=== PATIENT | female | born 1955 | race Caucasian/White ===

== ENCOUNTER 2022-05-28 16:54 | Emergency (ER) | payer MEDICARE, OTHER, SELFPAY ==
[2022-05-28] VITALS (9 sets, daily range): BP systolic 112–135; BP diastolic 71–80; PULSE 49–73; RESP 13–36; O2SAT 94–100
--- NOTE | ~2022-05-28 | CT_ITS ---
EXAMINATION: CTA chest PE protocol DATE: 05/28/2022 22:43 INDICATION: PE TECHNIQUE: Computed tomography angiography (CTA) of the chest was performed with 100 mL Omnipaque-350 intravenous contrast timed to evaluate the pulmonary arteries. Coronal maximum intensity projection 3D-reconstructions were created by the technologist. The dose-length product (DLP) was 239.05 mGy-cm. Automated exposure control and iterative reconstruction technique were employed. COMPARISON: X-ray chest, same date. FINDINGS: Lung parenchyma and airways: Scattered dependent groundglass opacities. Pleura: Unremarkable. Thoracic inlet, axillae and chest wall: Bilateral breast augmentation. Thoracic aorta: Mild arch ectasia. Mediastinum: Dilated central pulmonary arteries as can be seen with pulmonary arterial hypertension. Heart and pericardium: Cardiomegaly. Coronary artery calcifications: Mild. Upper abdomen: Ill-defined 4.4 cm hypodensity in the central liver, with the suggestion of very early peripheral nodular enhancement. Simple left lobe cyst. Bones: No acute osseous finding. Pulmonary arteries: Study quality: Adequate. No pulmonary emboli detected. IMPRESSION: No CT evidence of acute pulmonary embolus. Mild scattered pulmonary groundglass opacities may represe nt atelectasis or mild edema. Indeterminate 4.4 cm liver mass, possibly representing a hemangioma, re commend nonemergent, outpatient CT or MR of the liver for further characterization. Reviewed, dictated and finalized at location K. IMPRESSION: No CT evidence of acute pulmonary embolus. Mild scattered pulmonary groundglass opacities may represent atelectasis or mild edema. Indeterminate 4.4 cm liver mass, possibly representing a hemangioma, recommend nonemergent, outpatient CT or MR of the liver for further characterization.
--- NOTE | ~2022-05-28 | XR_ITS ---
EXAMINATION: XR chest 2V Exam Date/Time: 05/28/2022 17:15 CDT HISTORY: DIZZINESS, RT SIDE CHEST PAIN X 1DAY Comparison: None available. RESULT: Lines, tubes, and devices: Surgical clips over the GE junction. Lungs and pleura: Clear. Cardiomediastinal silhouette: Unremarkable. Other: No acute osseous or upper abdominal finding. IMPRESSION: No acute cardiopulmonary process. Reviewed, dictated and finalized at location K.
--- NOTE | 2022-05-28 17:01 | ECG_ITS ---
Measurements Intervals Parker Rate: 50 P: 48 NM: 192 QRS: 13 QRSD: 73 T: 29 QT: 414 QTc: 381 Interpretive Statements SINUS BRADYCARDIA EARLY PRECORDIAL R/S TRANSITION LOW QRS VOLTAGE IN PRECORDIAL LEADS BASELINE ARTIFACT- I, AVR, AVL BORDERLINE ECG NO PREVIOUS ECG AVAILABLE FOR COMPARISON Electronically Signed On 05-28-2022 21:32:29 CDT by Fabio Erazo D.O.
[2022-05-28 17:26] LABS: Basophils Percent Auto 0.6 % (0.2-1.2); Eosinophils Absolute Auto 0.2 K/mm3 (0-0.3); Eosinophils Percent Auto 2.3 % (0-4.4); Hematocrit 38.7 % (37.0-47.0); Hemoglobin 12.6 g/dL (12.0-15.0); Immature Granulocyte Absolute 0.01 K/mm3 (0.00-0.031); Immature Granulocyte Percent A 0.2 % (0-0.5); Lymphocytes Absolute Auto 1.85 K/mm3 (0.9-3.2); Lymphocytes Percent Auto 28.2 % (18.3-44.2); Mean Corpuscular HGB Conc 32.6 g/dl (32-36); Mean Corpuscular Hemoglobin 31.5 pg (26-34); Mean Corpuscular Volume 96.8 fl (80-100); Mean Platelet Volume 9.6 fl (7.4-10.4); Monocytes Absolute Auto 0.5 K/mm3 (0.1-0.6); Monocytes Percent Auto 8.1 % (2.6-8.5); Neutrophils Percent Auto 60.6 % (45.5-73.1); Platelet Count Result 254 k/mm3 (150-375); Red Cell Distribution Width 13.3 % (11.5-14.5); White Blood Count 6.6 K/mm3 (4.5-10.0)
[2022-05-28 17:35] LABS: Alanine Aminotransferase 25 U/L (6-35); Albumin Level 4.3 g/dL (3.5-5.1); Alkaline Phosphatase 80 U/L (38-126); Anion Gap 4 mmol/L (8-16); Aspartate Amino Transferase 31 U/L (14-36); Bilirubin,Total 0.6 mg/dL (0.2-1.3); Blood Urea Nitrogen 22 mg/dL (7-17); Calcium 9.3 mg/dL (8.4-10.2); Carbon Dioxide 30 mmol/L (22-30); Chloride 106 mmol/L (98-107); Estimated CRCL calculation 56 ml/min; Estimated Glomerular Filt Rate > 60; Glucose 101 mg/dL (65-110); Lipase 28 U/L (23-300); Potassium 3.9 mmol/L (3.4-5.0); Sodium 140 mmol/L (137-145)
[2022-05-28 17:40] LABS: Partial Thromboplastin Time 26.4 SECONDS (22.3-36.8)
[2022-05-28 17:52] LABS: Troponin I < 0.012 ng/mL (0.000-0.034)
[2022-05-28 21:26] LABS: Troponin I < 0.012 ng/mL (0.000-0.034)
[2022-05-29 00:11] LABS: Troponin I < 0.012 ng/mL (0.000-0.034)
--- NOTE | 2022-05-29 00:49 | ED.GENADULT ---
HPI - General Adult General Chief complaint: Chest Pain Stated complaint: Chest pain Time Seen by Provider: 05/28/22 21:24 History of Present Illness HPI narrative: Patient 66-year-old female who presents emerged department with chief complaint of chest pain. Patient reports she has prior history of breast cancer and has been clean for several years. The patient reports that today she went to an appointment and noticed that she been having discomfort in the right side of her chest since about 9:00 in the morning patient reports that the pain is sharp reports is worse with inspiration and movement Related Data Allergies Allergy/AdvReac Type Severity Reaction Status Date / Time No Known Allergies Allergy Unknown Verified 11/28/02 09:18 NKDA Allergy Mild Uncoded 11/23/02 13:38 Review of Systems Review of Systems: A 10 system review of systems was completed on the patient and is negative except for what is stated in the HPI. Nursing and ancillary documentation was reviewed. Exam Narrative: GENERAL: Well-appearing, well-nourished, and in no acute distress. HEAD: Normocephalic, atraumatic. EYES: PERRLA and EOMI. ENT: Nares clear, no rhinorrhea or epistaxis. Mucous membranes moist. NECK: Supple. CHEST: Clear to auscultation. No respiratory distress. HEART: Regular rate and rhythm. No murmur heard. Normal peripheral pulses. ABDOMEN: Soft, nontender, nondistended, normal active bowel sounds. EXTREMITIES: Normal range of motion. No edema. SKIN: Warm, dry, no rash. NEURO: No focal deficits. Alert and oriented x3. PSYCH: Normal mood and affect. Course Vital Signs Vital signs: Vital Signs Pulse Oximetry 99 05/28/22 20:38 Pulse Rate 73 05/28/22 21:31 Respiratory Rate 21 H 05/28/22 21:31 Blood Pressure 112/80 05/28/22 21:31 Pulse Oximetry 100 05/28/22 21:31 Medical Decision Making [facility] Narrative Medical decision making narrative: Differential diagnosis includes ACS, unstable angina, PE, pneumonia, pneumothorax Laboratory studies were within normal limits patient had 3 negative troponins in the emergency department. CTA of the chest showed No CT evidence of acute pulmonary embolus. Mild scattered pulmonary groundglass opacities may represent atelectasis or mild edema. Indeterminate 4.4 cm liver mass, possibly representing a hemangioma, recommend nonemergent, outpatient CT or MR of the liver for further characterization. Vital Signs Vital Signs: Vital Signs Pulse Oximetry 99 05/28/22 20:38 Pulse Rate 73 05/28/22 21:31 Respiratory Rate 21 H 05/28/22 21:31 Blood Pressure 112/80 05/28/22 21:31 Pulse Oximetry 100 05/28/22 21:31 Lab Data 05/28/22 17:19 05/28/22 17:19 Labs: Lab Results 05/28/22 05/28/22 05/28/22 Range/Units 17:19 17:19 17:19 WBC 6.6 (4.5-10.0) K/mm3 RBC 4.00 L (4.2-5.4) M/mm3 Hgb 12.6 (12.0-15.0) g/dL Hct 38.7 (37.0-47.0) % MCV 96.8 (80-100) fl MCH 31.5 (26-34) pg MCHC 32.6 (32-36) g/dl RDW 13.3 (11.5-14.5) % Plt Count 254 (150-375) k/mm3 MPV 9.6 (7.4-10.4) fl Immature Gran % (Auto) 0.2 (0-0.5) % Neut % (Auto) 60.6 (45.5-73.1) % Lymph % (Auto) 28.2 (18.3-44.2) % Twiggs % (Auto) 8.1 (2.6-8.5) % Eos % (Auto) 2.3 (0-4.4) % Baso % (Auto) 0.6 (0.2-1.2) % Lymph # (Auto) 1.85 (0.9-3.2) K/mm3 Twiggs # (Auto) 0.5 (0.1-0.6) K/mm3 Eos # (Auto) 0.2 (0-0.3) K/mm3 Baso # (Auto) 0.0 (0.0-0.1) K/mm3 Abs Immat Gran (auto) 0.01 (0.00-0.031) K/mm3 Absolute Neuts (auto) 4.0 (1.3-6.7) K/mm3 Absolute Nucleated RBC 0.0 (0.0-0.012) K/mm3 Nucleated RBC % 0.0 (0.0-0.2) % PT 13.0 (11.1-14.7) Seconds INR 1.0 APTT 26.4 (22.3-36.8) SECONDS Sodium 140 (137-145) mmol/L Potassium 3.9 (3.4-5.0) mmol/L Chloride 106 (98-107) mmol/L Carbon Dioxide 30 (22-30) mmol/L Anion Gap 4 L (8-16) mmo
[2022-05-29 01:03] VITALS: BP 123/81; PULSE 75; RESP 18; O2SAT 95
== END 2022-05-29 01:05 | disposition home or self-care (01) ==
PROVIDERS: Emergency Medicine; Emergency Provider Emergency Medicine
DX: R07.89 Other chest pain (principal); Z85.3 Personal history of malignant neoplasm of breast; R00.1 Bradycardia, unspecified; R16.0 Hepatomegaly, not elsewhere classified
CPT/HCPCS: 36415; 71046; 71275; 80053; 83690; 84484; 85025; 85610; 85730; 93005; 99284; Q9967